=== PATIENT | male | born 2005 | race African-American/Black ===

== ENCOUNTER 2025-03-06 23:58 | Emergency (ER) | payer SELFPAY ==
[2025-03-07] MEDS ORDERED: Albuterol 2.5 MG (0.5 mL) NEB ONE (00:10)
== END 2025-03-07 01:00 | disposition home or self-care (01) ==
LOC: BURERS 23:58
DX: J45.901 Unspecified asthma with (acute) exacerbation (principal)
CPT/HCPCS: J7611